=== PATIENT | female | born 1980 | race Caucasian/White ===

== ENCOUNTER 2020-02-11 01:05 | Observation (INO) | payer OTHER ==
[~2020-02-11] VITALS: Ht 154.9 cm; Wt 63.0 kg
--- NOTE | 2020-02-11 01:08 | PHYS DOC ---
Past History Past Medical History: Stroke, Vascular Disease Past Medical History Raynaud's, antiphospholipid antibody, Smoking: Cigarettes Additional Smoking Information: Vapes General Adult HPI: HPI: ".. My woke me up... he said I was having a seizure.. ." Pt. " ... We were sleeping together.. and I felt the bed shaking.. I looked over and she was shaking.. her arms were out.. and she was spitting her saliva.. And drooling... I tried to wake her up but she would not wake up... I rolled her on her side.... 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 Patient denies any previous episode of seizure disorder. Has not on any seizure meds. Has been taking Chantix for attempts at stopping her tobacco use. Patient does have somewhat of a significant past medical history of antiphospholipid disorder, TIA/CVA 2007, Raynaud's, hypertension and PFO. Patient reports her previous TIA/stroke she did not speak for approximately 24 hours. Patient is followed by neurology at [facility] in the past. Follows at for rheumatology. Follows at [facility] for oncology. And follows at [facility] with Dr. Ramirez for cardiology. Patient does take Coumadin and does home INR checks. Her last check INR was 2.1. Patient denies any previous history of cardiac disorders other than a PFO. Pt. last bubble test was negative. . Patient normally follows with [facility] for a primary care. Patient denies any specific ill contacts. 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 Patient advises she does not have any specific contact with ill patients. No recent travel. No specific ill contacts. Her boyfriend has also been testing negative for Covid he is also a pharmacist. Patient currently states her memory is somewhat cloudy and her ability to process questions is somewhat slow currently. Patient does states she is having trouble remembering events currently. No history of trauma. Patient does continue to smoke and vape nicotine.. Pt. advised we can speak to her boyfriend reference any medical issues and he can make medical decisions for her if she cannot speak. Boyfriend's phone number is [phone]. Review of Systems: Review of Systems: Constitutional: Denies fever or chills Eyes: Denies change in visual acuity HENT: Denies nasal congestion or sore throat Respiratory: Denies cough or shortness of breath Cardiovascular: Denies chest pain or edema GI: Denies abdominal pain, nausea, vomiting, bloody stools or diarrhea : Denies dysuria Musculoskeletal: Denies back pain or joint pain Integument: Denies rash Neurologic: Denies headache, focal weakness or sensory changes . Reports some confusion and memory loss. Endocrine: Denies polyuria or polydipsia Lymphatic: Denies swollen glands Psychiatric: Denies depression or anxiety Family History: Family History: Noncontributory to presentation Current Medications: Current Meds: See nursing for home meds Allergies: Allergies: No known drug allergies Physical Exam: PE: Constitutional: Well developed, well nourished, mild distress, non-toxic appearance. [] HENT: Normocephalic, atraumatic, bilateral external ears normal, oropharynx dry, no oral exudates, nose normal. [] Eyes: PERRLA, EOMI, conjunctiva normal, no discharge. [] Neck: Normal range of motion, no tenderness, supple, no stridor. No bruits appreciated Cardiovascular:Heart rate regular rhythm, no murmur. Does have occasionally PVC as per monitor Lungs & Thorax: Bilateral breath sounds equal apex with few scattered wheezes on auscultation [] Abdomen: Bowel sounds normal, soft, no tenderness, no masses, no pulsatile masses. [] Skin: Warm, dry, no erythema, no rash. Does have some decreased capillary refill and distal fingers. More prominent on left index currently. Back: No tenderness, no CVA tenderness. [] Extremities: No tenderness, no cyanosis, no clubbing, ROM intact, no edema.. No cording in legs. Neurologic: Alert and oriented X 3, moves all extremities on request, has distal sensory, no focal deficits noted. DTRs +2 patellar and brachial. No drift. Risk Compliance Manager equal. Does appear to have some memory issues currently. Psychologic: Affect anxious, judgement normal, mood normal. Does appear to have issues of difficulty in recall or memory at this time. EKG: EKG: My interpretation EKG shows a sinus rhythm at 85 bpm. Does have a occasional P VC. There is less affect axis deviation. [] Radiology/Procedures: Radiology/Procedures: [][address] [address] IMAGING REPORT Signed PATIENT: IGNACIO COATS ACCOUNT: [id number] : 1980 LOCATION: ER AGE: 39 SEX: F EXAM STATUS: PRE ER ORD. PHYSICIAN: JUAN JOSÉ YUAN MD REASON: sz, cough PROCEDURE: CHEST AP ONLY CHEST AP ONLY INDICATION: Reason: sz, cough / Spl. Instructions: / History: . COMPARISON STUDY: None. FINDINGS: Lungs: Normal lung volume. No pulmonary mass or consolidation. The tracheobronchial tree and hilar structures are normal. Pleura: No pleural effusion or pneumothorax. Heart and Mediastinum: The cardiomediastinal silhouette is normal. The great vessels of the thorax are normal. Bones and Soft Tissues: The bones and soft tissues are within normal limits. IMPRESSION: No acute cardiopulmonary process. Electronically signed by: Marilee Dill MD (02/11/2020 2:17 AM) [facility] DICTATED AND SIGNED BY: MARILEE DILL MD DATE: 02/11/20216 CC: JUAN JOSÉ YUAN MD ~MTH0 [address] [address] IMAGING REPORT Signed PATIENT: IGNACIO COATS ACCOUNT: [id number] : 1980 LOCATION: ER AGE: 39 SEX: F EXAM STATUS: PRE ER ORD. PHYSICIAN: JUAN JOSÉ YUAN MD REASON: seizure, PROCEDURE: CT HEAD WO CONTRAST CT HEAD WO CONTRAST Date: 02/11/2020 1:35 AM Clinical Indication: Reason: seizure, / Spl. Instructions: / History: Comparison: None. Technique: 5 mm axial tomographic images were obtained of the head without contrast. These were viewed on brain and bone windows. One or more of the following dose reduction techniques were utilized: Automated exposure control (AEC), Adjustment of mA and/or kV according to patient size, Use of iterative reconstruction technique such as ASiR, CT scan done according to ALARA and image gently/image wisely Findings: The brain parenchyma is normal in attenuation. No intra- or extra-axial mass or fluid collection. No acute hemorrhage. The ventricles are normal in size, shape, and morphology. The kimball-white matter junction is normal. The subarachnoid cisterns are patent. The visualized paranasal sinuses are normal. The visualized portions of the orbits and globes are normal. The mastoid air cells are clear. The citizenship teacher topogram shows no lytic lesion or fracture. Impression: No acute intracranial process. Electronically signed by: Marilee Dill MD (02/11/2020 2:10 AM) [facility] DICTATED AND SIGNED BY: MARILEE DILL MD DATE: 02/11/20209 CC: JUAN JOSÉ YUAN MD ~MTH0 0 Heart Score: HEART Score for Chest Pain: HEART Score for Chest Pain Response (Comments) Value History Moderately Suspicious 1 ECG Nonspecific Repolarizatio 1 Age < 45 0 Risk Factors 1 or 2 Risk Factors 1 Troponin >1-<3x Normal Limit 1 Total 4 Risk Factors: Risk Factors: DM, Current or recent (<one month) smoker, HTN, HLP, family history of CAD, obesity. Risk Scores: Score 0 - 3: 2.5% MACE over next 6 weeks - Discharge Home Score 4 - 6: 20.3% MACE over next 6 weeks - Admit for Clinical Observation Score 7 - 10: 72.7% MACE over next 6 weeks - Early Invasive Strategies Course & Med Decision Making: Course & Med Decision Making Pertinent Labs and Imaging studies reviewed. (See chart for details) Discussed options of evaluation and treatment with patient. Patient does elect to be admitted for further evaluation and treatment and possibly neurology consult in the morning. Discussed presentation, testing and tx. plan with Dr Celaya will admit to his service. Impression: 1, Pslzx-xsbqml-awlzokz-like activity. 2. Mild dehydration 3. Elevated creatinine 1.3 4. History of Raynaud's 5. History of antiphospholipid antibody 6. History of TIA/CVA 2007 7. Vapes nicotine [] Dragon Disclaimer: Dragon Disclaimer: This electronic medical record was generated, in whole or in part, using a voice recognition dictation system. Dragon Disclaimer This chart was dictated in whole or in part using Voice Recognition software in a busy, high-work load, and often noisy Emergency Department environment. It may contain unintended and wholly unrecognized errors or omissions. Dragon Disclaimer This chart was dictated in whole or in part using Voice Recognition software in a busy, high-work load, and often noisy Emergency Department environment. It ma y contain unintended and wholly unrecognized errors or omissions. Dragon Disclaimer This chart was dictated in whole or in part using Voice Recognition software in a busy, high-work load, and often noisy Emergency Department environment. It may contain unintended and wholly unrecognized errors or omissions. JUAN JOSÉ YUAN MD Feb 11, 2020 01:08
[2020-02-11 01:59] LABS: BASO % 0 % (0-3); EOS # 0.1 x10^3/uL (0.0-0.7); EOS % 2 % (0-3); HEMATOCRIT 37.5 % (36.0-47.0); HEMOGLOBIN 12.5 g/dL (12.0-15.5); LYMPH # 2.3 x10^3/uL (1.0-4.8); LYMPH % 23 % (24-48); MEAN CORPUSCULAR HEMOGLOBIN 32 pg (25-35); MEAN CORPUSCULAR HGB CONC 33 g/dL (31-37); MEAN CORPUSCULAR VOLUME 97 fL (79-100); MONO % 10 % (0-9); NEUT # 6.3 x10^3uL (1.8-7.7); NEUT % 65 % (31-73); PLATELET COUNT 261 x10^3/uL (140-400); RED BLOOD COUNT 3.88 x10^6/uL (3.50-5.40); RED CELL DISTRIBUTION WIDTH 13.1 % (11.5-14.5); WHITE BLOOD COUNT 9.7 x10^3/uL (4.0-11.0)
[2020-02-11] MEDS ORDERED: IV RINGERS SOLUTION,LACTATED 1,000 ML IV SCH (02:00)
[2020-02-11 02:11] LABS: ANION GAP 7 (6-14); BLOOD UREA NITROGEN 17 mg/dL (7-20); CALCIUM 8.8 mg/dL (8.5-10.1); CARBON DIOXIDE 28 mmol/L (21-32); CHLORIDE 103 mmol/L (98-107); CREATININE 1.3 mg/dL (0.6-1.0); GFR 46.1; GLUCOSE 122 mg/dL (70-99); POTASSIUM 4.2 mmol/L (3.5-5.1); SODIUM 138 mmol/L (136-145)
--- NOTE | 2020-02-11 02:13 | RAD ---
CT HEAD WO CONTRAST Date: 02/11/2020 1:35 AM Clinical Indication: Reason: seizure, / Spl. Instructions: / History: Comparison: None. Technique: 5 mm axial tomographic images were obtained of the head without contrast. These were viewed on brain and bone windows. One or more of the following dose reduction techniques were utilized: Automated exposure control (AEC), Adjustment of mA and/or kV according to patient size, Use of iterative reconstruction technique such as ASiR, CT scan done according to ALARA and image gently/image wisely Findings: The brain parenchyma is normal in attenuation. No intra- or extra-axial mass or fluid collection. No acute hemorrhage. The ventricles are normal in size, shape, and morphology. The kimball-white matter junction is normal. The subarachnoid cisterns are patent. The visualized paranasal sinuses are normal. The visualized portions of the orbits and globes are normal. The mastoid air cells are clear. The orthotic/prosthetic practitioner topogram shows no lytic lesion or fracture. Impression: No acute intracranial process. Electronically signed by: Lacho Dill MD (02/11/2020 2:10 AM) [facility]
--- NOTE | 2020-02-11 02:20 | RAD ---
CHEST AP ONLY INDICATION: Reason: sz, cough / Spl. Instructions: / History: . COMPARISON STUDY: None. FINDINGS: Lungs: Normal lung volume. No pulmonary mass or consolidation. The tracheobronchial tree and hilar structures are normal. Pleura: No pleural effusion or pneumothorax. Heart and Mediastinum: The cardiomediastinal silhouette is normal. The great vessels of the thorax are normal. Bones and Soft Tissues: The bones and soft tissues are within normal limits. IMPRESSION: No acute cardiopulmonary process. Electronically signed by: Lacho Dill MD (02/11/2020 2:17 AM) [facility]
[2020-02-11 02:24] LABS: ALBUMIN 3.7 g/dL (3.4-5.0); ALK PHOS 48 U/L (46-116); ALT (SGPT) 31 U/L (14-59); AST (SGOT) 22 U/L (15-37); DIRECT BILIRUBIN 0.1 mg/dL (0.0-0.2); LIPASE 198 U/L (73-393); TOTAL BILIRUBIN 0.4 mg/dL (0.2-1.0); TOTAL PROTEIN 6.6 g/dL (6.4-8.2)
[2020-02-11 02:30] LABS: C REACTIVE PROTEIN < 0.5 mg/L (0-3.3)
[2020-02-11 03:30] LABS: BARBITURATES NEG (NEG); BENZODIAZEPINES NEG (NEG); CANNABINOIDS NEG (NEG); COCAINE NEG (NEG); METHADONE NEG (NEG); OPIATES NEG (NEG); PHENCYCLIDINE NEG (NEG)
[2020-02-11 03:33] LABS: COLOR,URINE YELLOW
[2020-02-11 03:34] LABS: BACTERIA,URINE 0 /HPF (0-FEW); BILIRUBIN,URINE NEG (NEG); CLARITY,URINE CLEAR; GLUCOSE,URINE NEG (NEG); NITRITE,URINE NEG (NEG); RBC,URINE 0 /HPF (0-2); SQUAMOUS EPITHELIAL CELL,UR FEW /LPF; UROBILINOGEN,URINE 0.2 mg/dL (0.2 mg/dL); WBC,URINE RARE /HPF (0-4)
[2020-02-11 03:38] LABS: AMPHETAMINE/METHAMPHETAMINE NEG (NEG)
[2020-02-11] MEDS ORDERED: ONDANSETRON PF 4 MG/2 ML VIAL. IVP PRN (04:45)
[2020-02-11] MEDS ORDERED: ACETAMINOPHEN 325 MG TABLET PO PRN (04:45)
--- NOTE | 2020-02-11 05:55 | NUR ---
The patient, IGNACIO COATS, 39 y/o, F admitted by ALBERTO MCLEAN MD, was given written information regarding hospital policies, unit procedures and contact persons. Valuables were checked and left with patient.
[2020-02-11 06:10] VITALS: BP 99/64
[2020-02-11 11:02] VITALS: BP 99/63
[2020-02-11] MEDS ORDERED: NIFE30TA95 PO (15:23)
[2020-02-11] MEDS ORDERED: LISI10TA2 PO (15:23)
[2020-02-11] MEDS ORDERED: VARE1TAB20 PO (15:23)
[2020-02-11] MEDS ORDERED: WARF4TAB64 PO (15:23)
--- NOTE | 2020-02-11 15:49 | NUR ---
Pharmacy Warfarin Dosing Note S:Pharmacy consulted to assist with anticoagulation therapy started with target INR: 2 -3 O:IGNACIO COATS is a 39 year old F with ANTIPHOSPHOLIPID SYNDROME LABS: Last INR: 2.1 Last HGB: 12.5 Last HCT: 37.5 Last PLT: 261 Last dose of 8MG given on at Previous Regimen: Vitamin K given: N Drug Interaction Changes: Same Interacting Drug Ongoing Drug Interactions: home dose 8mg warfarin daily A:INR Within desired Range. Target Range for this patient is: 2 -3 P: Warfarin dose: 8MG Today at 1600 Bridge Therapy: None Next INR due 02/12/20 @ 0600 Pharmacy anticoagulation service will continue to follow. [facility] SANC[facility], 02/11/20 [id number]
--- NOTE | 2020-02-11 15:59 | HP ---
ADMIT DATE: 02/11/2020 HISTORY OF PRESENT ILLNESS: The patient is a 39-year-old female patient, who was brought to the Emergency Room. Her stated that they went to sleep together and he felt the bed shaking, he looked over and she was shaking, her arms were out and she was spitting her saliva and drooling. He tried apparently to wake her up, but she would not wake up, so he rolled her on her side. She eventually came around, but was really kind of confused on her responses. The patient denied any previous episodes of seizure disorder. She is not on any seizure medicine, has been taking Chantix for attempt to stop her tobacco use. She does have somewhat of a significant past medical history of antiphospholipid disorder, has had a TIA or CVA in 2007, Raynaud's phenomenon, hypertension and resistant fossa ovalis. She reports had previous TIA or stroke. She did not speak for approximately 24 hours. The patient is followed by Neurology at [facility] in the past. She was seen at [facility] for rheumatology and she follows at the [facility] for Oncology and follows at the [facility] with ____ for Cardiology. The patient does take Coumadin and does home INR checks. Her last check INR was 2.1. The patient denies any previous history of cardiac disorders other than PFO. She has had bubble study done recently that was negative. Her primary care physician is ____, the nurse practitioner with Dr. Tay Baker. 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 Her boyfriend was also tested negative for COVID and he is also a pharmacist. She complained also that her memory is somewhat cloudy and her ability to process questions somewhat slow and has trouble remembering events; however, she has no history of trauma. She was extensively investigated in the Emergency Room and has had lab work as well as CT scan. Her INR was within therapeutic range at 2.1. Her D-dimer was normal at least 10.19. Urinalysis was unremarkable and toxic screen was also negative. She has had a CT scan of the head that showed basically no acute intracranial process and her chest x-ray was also unremarkable. The patient was admitted with possible new onset of seizure. We will consult Dr. Cornejo to evaluate with oral evaluate and treat. PAST MEDICAL HISTORY: Significant for hypertension, antiphospholipid syndrome, had had a CVA and TIA in 2007, she had glaucoma, Raynaud's phenomenon and resistant PFO; however, her bubble study done recently was negative. She has also complained of worsening memory deficit. PAST SURGICAL HISTORY: Significant for , tubal ligation, wisdom teeth extraction. ALLERGIES: She has no known drug allergies. MEDICATIONS: She is currently on following medications: She is on Tylenol 650 mg every 4 hours, lorazepam. She is on Coumadin, nifedipine, and Chantix. FAMILY HISTORY: She has 1 younger sister apparently healthy. Both parents are alive at the age of 62 and none of them have any history of DVT or PE. SOCIAL HISTORY: She is , currently lives with her boyfriend. She has 1 son, who is 10 years old. She continued to vape, does not smoke cigarettes, drinks 6-pack of alcohol every weekend, does not use any drugs. 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 REVIEW OF SYSTEMS: As per history of present illness. PHYSICAL EXAMINATION: GENERAL: On arrival to the Emergency Room, she looked well and was clearly in no apparent respiratory distress. There was no pallor, jaundice, cyanosis or thyromegaly. No jugular venous distention. No lower limb edema. VITAL SIGNS: Her heart rate on arrival was 101, blood pressure was 127/87, temperature was 98.3, respiratory rate was 16, and oxygen saturation was 99%. HEAD, EYES, EARS, NOSE AND THROAT: Showed normocephalic, atraumatic. NECK: Supple. HEART: Showed normal first and second heart sounds. No gallop or murmur. CHEST: Clear to auscultation. No crepitation or rhonchi. ABDOMEN: Distended, soft, nontender. NEUROLOGIC: She was awake, alert, responding appropriately. All her cranial nerves are intact. EXTREMITIES: She moves extremities without difficulty. PSYCHOLOGICAL: Her affect, judgment and mood were normal. LABORATORY DATA: Her EKG showed that she was in sinus rhythm at 85 beats per minute, occasional PVCs. Her chest x-ray was unremarkable and showed no acute cardiopulmonary process. The CT scan of the head showed that the brain parenchyma is normal in attenuation. No intra or extraaxial mass or fluid collection. No acute hemorrhage. The ventricles are normal in size, shape and morphology. The kimball white matter junction is normal. The cisterns are patent. The visualized paranasal sinuses are normal. The visualized portion, the orbits and globes are normal. The mastoid air cells are clear. The attending ambulatory care topogram shows no lytic lesion or fracture. Her CBC showed a white cell count 9700, hemoglobin 12.5, hematocrit 37.5, MCV 97 and platelet count of 261,000 with normal manual differential. Her chemistry showed a serum sodium 138, potassium 4.2, chloride 103, bicarbonate 28, anion gap of 7, BUN 17, creatinine 1.3, estimated GFR was 46 mL per minute, her glucose 122, calcium was 8.8, magnesium 2. Total bilirubin, AST, ALT, alkaline phosphatase were normal. Total protein was 6.6, albumin was 3.7. Lipase was 198. Her prothrombin time was 21.3, INR of 2.1, aPTT was 29 and D-dimer was less than 0.19. Urinalysis was essentially unremarkable and urine toxic screen showed the urine was negative for opiates, methadone, barbiturates, phencyclidine, amphetamine, methamphetamine, benzodiazepine, cocaine, cannabinoids and alcohol. ASSESSMENT AND PLAN: 1. The patient was admitted with a possible new onset of tonic-clonic seizures. 2. The patient has a history of antiphospholipid antibody syndrome. 3. Raynaud's phenomenon. 4. History of transient ischemic attack and cerebrovascular accident in 2007. 5. Mild dehydration with elevated serum creatinine. 6. The patient continued to be vaping. She also drinks about 6 packs of alcohol on the weekends. PLAN: My plan is to continue all her current medications and we have consulted Dr. Cornejo to assist for her evaluation and treatment. ALBERTO MCLEAN MD DR: DELILAH/fátima JOB#: [id number] / [id number]
[2020-02-11] MEDS ORDERED: WARFARIN 4 MG TABLET. PO SCH ×2 (16:00→21:00)
[2020-02-11 16:08] VITALS: BP 105/70
[2020-02-11] MEDS ORDERED: LISINOPRIL 10 MG TABLET PO SCH (21:00)
[2020-02-12 06:41] VITALS: BP 104/71
[2020-02-12 08:36] LABS: BASO # 0.1 x10^3/uL (0.0-0.2); BASO % 1 % (0-3); EOS # 0.2 x10^3/uL (0.0-0.7); EOS % 2 % (0-3); HEMATOCRIT 37.7 % (36.0-47.0); HEMOGLOBIN 12.3 g/dL (12.0-15.5); LYMPH # 2.4 x10^3/uL (1.0-4.8); LYMPH % 27 % (24-48); MEAN CORPUSCULAR HEMOGLOBIN 32 pg (25-35); MEAN CORPUSCULAR HGB CONC 33 g/dL (31-37); MEAN CORPUSCULAR VOLUME 98 fL (79-100); MONO # 0.8 x10^3/uL (0.0-1.1); MONO % 10 % (0-9); NEUT # 5.4 x10^3uL (1.8-7.7); NEUT % 61 % (31-73); PLATELET COUNT 227 x10^3/uL (140-400); RED BLOOD COUNT 3.85 x10^6/uL (3.50-5.40); RED CELL DISTRIBUTION WIDTH 13.4 % (11.5-14.5); WHITE BLOOD COUNT 8.8 x10^3/uL (4.0-11.0)
[2020-02-12 08:53] LABS: CALCIUM 8.5 mg/dL (8.5-10.1); GFR 62.4; POTASSIUM 4.4 mmol/L (3.5-5.1)
[2020-02-12] MEDS ORDERED: LISINOPRIL 10 MG TABLET PO SCH (09:00)
[2020-02-12 11:37] VITALS: BP 106/73
--- NOTE | 2020-02-12 12:13 | PN ---
DATE: SUBJECTIVE: The patient denies any new medical or neurological complaints. She has not had any recurrent seizures since admission. She has not been on any anticonvulsant at this time. She denies chest pain, shortness of breath or palpitation, dysarthria or dysphagia. OBJECTIVE: GENERAL: Well-developed, well-nourished female, not in acute distress. VITAL SIGNS: Afebrile, blood pressure 104/71, respiratory rate 16, pulse is 77, temperature 98.5, oxygen saturation 94% on room air. HEENT: Normocephalic and atraumatic, otherwise unremarkable. NECK: Supple. Negative for carotid bruit, lymphadenopathy or thyromegaly. LUNGS: Clear to A and P. CARDIOVASCULAR: Regular rate and rhythm, normal S1 and S2. There is no S3, S4 or murmurs. ABDOMEN: Soft. Bowel sounds positive. EXTREMITIES: Negative for cyanosis, clubbing or edema. NEUROLOGICAL EXAM: Mental Status: The patient is alert and oriented x 3. Speech is fluent. There is no language dysfunction. Cranial nerves are intact. No focal motor or sensory deficit. Deep tendon reflexes were symmetric and active without pathology responses. Gait and coordination were normal. LABORATORY DATA: Coagulation: PT is 22, INR 2.2. CBC revealed white blood cells of 8.8 thousand, hemoglobin 12.3, hematocrit 37.7, platelet count 227. Chemistry revealed sodium of 139, potassium 4.4, chloride 106, CO2 of 27, BUN 16, creatinine 1, glucose 84. IMPRESSION: 1. Possible new onset of seizure, etiology uncertain. 2. Positive history of antiphospholipid antibody syndrome, Raynaud phenomenon, history of stroke, smoking. RECOMMENDATIONS: 1. We will arrange for an EEG on an outpatient and brain MRI. 2. Continue with current management initiated by Dr. Celaya. M Elijah JAMES MD DR: TAMELA/fátima JOB#: [id number] / [id number]
--- NOTE | 2020-02-12 12:44 | NUR ---
PATIENT IS DISCHARGED HOME WITH SELF CARE. PATIENT IS GIVEN FOLLOW UP INSTRUCTIONS WITH NEUROLOGY. PATIENTS IV IS REMOVED AND TELE MONITOR RECEIVED. PATIENT IS STABLE AT TIME OF DISCHARGE. PATIENT IS ESCORTED OFF OF UNIT ACCOMPANIED BY STAFF.
--- NOTE | 2020-02-12 12:55 | CONS ---
DATE OF CONSULTATION: REFERRING PHYSICIAN: Dr. Celaya. REASON FOR CONSULTATION: Rule out new onset of stroke. 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 According to her , the patient was sleepy and all of a sudden, she started having shaking of the upper extremities, lasted a few minutes and followed by postictal confusions lasted approximately 20 minutes. The patient did not recall the event. She denies tongue biting or urinary or bladder incontinence. The patient has had a history of TIA versus stroke in 2007, described as difficulty to speak for 2 days. She has had memory loss since the stroke. She was found to have positive antiphospholipid antibodies. Therefore, she was placed on warfarin, which she was taking intermittently until 2019 she has been taking regularly and she has been followed by a furnace repair mechanic at [facility] for INR regulation. The patient also describes some heart problems and she had PFO; however, last bubble echo test was negative. The patient denies any history of previous seizure-like activities. She has been very tired yesterday and she has been on Chantix, which reduced the threshold of a seizure for at least 4 months to stop smoking. However, she continues to smoke and vape extra nicotine. Currently, she stated her head feels cloudy and recently she said she had cloudiness of the head and memory loss, but she thinks she is improving. She denies chest pain, shortness of breath or palpitation, dysarthria or dysphagia or vertigo. The patient also denies any back pain or lower back or neck pain; however, she complains of intermittent numbness and paresthesia of the hands. PAST MEDICAL HISTORY: Positive for stroke or TIA, positive antiphospholipid antibodies, Raynaud's phenomenon, chronic smoking. FAMILY HISTORY: Noncontributory. SOCIAL HISTORY: The patient is , but she has boyfriend. She has one child at the age of 12. 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 She smokes and drinks alcohol. CURRENT MEDICATIONS: Lorazepam 1 mg p.r.n. for anxiety, Tylenol, Zofran 4 mg q.4 hours p.r.n. and she is on warfarin. Other medications not listed at this time. REVIEW OF SYSTEMS: A 10-point review of system was performed as mentioned above in history of present illness, presented with intermittent cloudiness in the head, memory loss, and intermittent dizziness. PHYSICAL EXAMINATION: GENERAL: Well-developed, well-nourished female, not in acute distress. She weighs 63 kilos. VITAL SIGNS: Blood pressure now 99/63, respiratory rate 20, pulse is 82, oxygen is 98% on room air, and temperature is 98. HEENT: Normocephalic, atraumatic, otherwise unremarkable. NECK: Supple. Negative for carotid bruit, lymphadenopathy or thyromegaly. LUNGS: Clear to A and P. CARDIOVASCULAR: Regular rate and rhythm, normal S1, S2. ABDOMEN: Soft. Bowel sounds positive. EXTREMITIES: Negative for cyanosis, clubbing or edema. NEUROLOGICAL EXAM: MENTAL STATUS: The patient is alert and oriented x 3. Speech is fluent. There is no language dysfunction. Immediate memory is normal. She denies hallucination or delusion. Judgment and abstract thinking are normal. CRANIAL NERVES: Visual thomason are full. The pupils are reactive to light and accommodation. The extraocular movements are intact. There is no nystagmus. There are no facial, motor, or sensory deficits. Hearing is intact bilaterally. The palate is elevated symmetrically. Sternocleidomastoid muscles are powerful bilaterally. The patient shrugs her shoulders symmetrically, protrudes her tongue in the midline without fasciculation or atrophy. MOTOR: No focal muscle bulk was seen. The tone is normal. The strength is 5/5 throughout. SENSORY EXAMINATION: Revealed normal pinprick, light touch, vibratory and position senses. Deep tendon reflexes were symmetric and hypoactive with absent Achilles responses bilaterally. Gait and coordination are normal. LABORATORY DATA: CBC revealed white blood cells of 9.7 thousand, hemoglobin 12.5, hematocrit 37.5, platelet count 261,000. Chemistry revealed sodium of 138, potassium 4.2, chloride 103, CO2 of 28, BUN 17, creatinine 1.3, glucose 122. Liver enzymes are normal. Troponin level is normal. Urinalysis is negative for urinary tract infection. Urine drug screen is negative. DIAGNOSTIC DATA: Nonenhanced head CT scan revealed no evidence of acute intracranial process and chest x-ray revealed no evidence of cardiopulmonary process. IMPRESSION: 1. New onset of seizure-like activities, described as jerking of upper extremities with foaming at the mouth and postictal confusions as described above, etiology uncertain, rule out epileptic versus nonepileptic seizure. 2. History of transient ischemic attack or stroke 12 years ago, presented with difficulty speaking and complicated with memory loss. 3. Multiple medical problems include smoking, positive antiphospholipid antibody. RECOMMENDATIONS: 1. Continue to observe the patient overnight for possible recurrent seizure. 2. We will arrange for brain MRI and EEG on an outpatient basis. 3. She will continue with current home medications. M Elijah JAMES MD DR: TAMELA/fátima JOB#: [id number] / [id number]
--- NOTE | 2020-02-13 08:53 | EKG ---
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
== END 2020-02-12 12:54 | disposition home or self-care (01) ==
LOC: ER 01:05 → 1 SOUTH 04:30
PROVIDERS: ADMIT Internal Medicine; ATTEND Internal Medicine
DX: R56.9 Unspecified convulsions (principal); D68.61 Antiphospholipid syndrome; I73.00 Raynaud's syndrome without gangrene; E86.0 Dehydration; R79.89 Other specified abnormal findings of blood chemistry; I10 Essential (primary) hypertension; F17.200 Nicotine dependence, unspecified, uncomplicated; Z86.73 Personal history of transient ischemic attack (TIA), and cerebral infarction without residual deficits; Z79.899 Other long term (current) drug therapy; Z79.01 Long term (current) use of anticoagulants
CPT/HCPCS: 36415; 70450; 71045; 80048; 80076; 80307; 81001; 82550; 83690; 83735; 83880; 84443; 84484; 84702; 85025; 85379; 85610; 85730; 86140; 93005; 96360; 99285; G0378; G0480; J7120; G0379

== ENCOUNTER → 2020-07-19 | Outpatient (CLI) | payer OTHER ==
[~2020-07-19] MED LIST: LISI10TA16 PO; NIFE30TA95 PO; VARE1TAB20 PO; WARF4TAB64 PO
== END ==
LOC: LAB 11:52
PROVIDERS: ATTEND Physician Assistant
DX: D68.61 Antiphospholipid syndrome (principal)
CPT/HCPCS: 36415; 85610

== ENCOUNTER 2020-11-01 23:50 | Emergency (ER) | payer OTHER ==
[~2020-11-01] VITALS: Ht 154.9 cm; Wt 61.8 kg
[2020-11-02] VITALS: BP 134/74
[2020-11-02 00:23] LABS: BARBITURATES NEG (NEG); BENZODIAZEPINES NEG (NEG); CANNABINOIDS NEG (NEG); COCAINE NEG (NEG); METHADONE NEG (NEG); OPIATES NEG (NEG); PHENCYCLIDINE NEG (NEG)
[2020-11-02 00:24] LABS: AMPHETAMINE/METHAMPHETAMINE NEG (NEG)
[2020-11-02] MEDS ORDERED: IV NORMAL SALINE 1,000ML 1,000 ML IV ONE (00:30)
[2020-11-02 00:41] LABS: BASO % 0 % (0-3); EOS # 0.1 x10^3/uL (0.0-0.7); EOS % 1 % (0-3); HEMATOCRIT 38.6 % (36.0-47.0); LYMPH # 2.6 x10^3/uL (1.0-4.8); LYMPH % 30 % (24-48); MEAN CORPUSCULAR HEMOGLOBIN 32 pg (25-35); MEAN CORPUSCULAR HGB CONC 34 g/dL (31-37); MEAN CORPUSCULAR VOLUME 96 fL (79-100); MONO # 0.8 x10^3/uL (0.0-1.1); MONO % 9 % (0-9); NEUT # 5.1 x10^3uL (1.8-7.7); NEUT % 59 % (31-73); PLATELET COUNT 241 x10^3/uL (140-400); RED BLOOD COUNT 4.03 x10^6/uL (3.50-5.40); RED CELL DISTRIBUTION WIDTH 12.9 % (11.5-14.5); WHITE BLOOD COUNT 8.5 x10^3/uL (4.0-11.0)
--- NOTE | 2020-11-02 00:41 | PHYS DOC ---
Past History Past Medical History: Stroke, Vascular Disease Additional Past Medical Histor: antiphosphalipid syndrome Past Surgical History: , Other Additional Past Surgical Histo: WISDOM TEETH Smoking: Cigarettes Alcohol Use: Occasionally General Adult EDM: Chief Complaint: SEIZURE HPI: HPI: 40-year-old female presents via EMS for syncopal episode and possible seizure. The patient remembers laying down to go to sleep. She does remember anything until she woke up with multiple people standing around her to transport her to the hospital. The patient tells me that she is a very deep sleeper. She is difficult to wake up normally. Her significant other who was present told EMS that the patient fell backwards and hit the back of her head. He thought she might have had seizure-like activity on the ground. The patient is on warfarin because she has antiphospholipid syndrome. The patient denies any other sy mptoms or feelings of illness today. She may have had one seizure in the past, but is on no seizure medication. She has history of miscarriage and a stroke. Review of Systems: Review of Systems: Constitutional: Denies fever or chills Eyes: Denies change in visual acuity HENT: Denies nasal congestion or sore throat Respiratory: Denies cough or shortness of breath Cardiovascular: Denies chest pain or edema GI: Denies abdominal pain, nausea, vomiting, bloody stools or diarrhea : Denies dysuria Musculoskeletal: Denies back pain or joint pain Integument: Scalp laceration Neurologic: Syncope. Denies headache, focal weakness or sensory changes Endocrine: Denies polyuria or polydipsia Lymphatic: Denies swollen glands Psychiatric: Denies depression or anxiety Current Medications: Current Meds: Current Medications Medications (Trade) Dose Ordered Sig/Lisa Start Time Stop Time Status Last Admin Dose Admin Sodium Chloride 1,000 ml @ 1,000 mls/hr 1X ONCE 11/02/20 00:30 11/02/20 01:29 Allergies: Allergies: Allergies Coded Allergies Type Severity Reaction Last Updated Verified No Known Drug Allergies 11/02/20 No Physical Exam: PE: Constitutional: Well developed, well nourished, no acute distress, non-toxic appearance. [] HENT: Normocephalic, atraumatic, bilateral external ears normal, oropharynx moist, no oral exudates, nose normal. [] Eyes: PERRLA, EOMI, conjunctiva normal, no discharge. [] Neck: Normal range of motion, no tenderness, supple, no stridor. [] Cardiovascular:Heart rate regular rhythm, no murmur [] Lungs & Thorax: Bilateral breath sounds clear to auscultation [] Abdomen: Bowel sounds normal, soft, no tenderness, no masses, no pulsatile masses. [] Skin: 2 mm laceration of the right lateral scalp. [] Back: No tenderness, no CVA tenderness. [] Extremities: No tenderness, no cyanosis, no clubbing, ROM intact, no edema. [] Neurologic: Alert and oriented X 3, normal motor function, normal sensory f unction, no focal deficits noted. [] Psychologic: Affect normal, judgement normal, mood normal. [] Current Patient Data: Labs: Laboratory Tests Test 11/01/20 23:59 11/02/20 00:09 Urine Opiates Screen Neg (NEG) Urine Methadone Screen Neg (NEG) Urine Barbiturates Neg (NEG) Urine Phencyclidine Screen Neg (NEG) Urine Amphetamine/Methamphetamine Neg (NEG) Urine Benzodiazepines Screen Neg (NEG) Urine Cocaine Screen Neg (NEG) Urine Cannabinoids Screen Neg (NEG) Urine Ethyl Alcohol Neg (NEG) POC Urine HCG, Qualitative hcg negative (Negative) Vital Signs: Vital Signs Date Time Temp Pulse Resp B/P (MAP) Pulse Ox O2 Delivery O2 Flow Rate FiO2 11/02/20 00:00 98.6 93 22 134/74 99 EKG: EKG: [] Radiology/Procedures: Radiology/Procedures: [] Impressions: PQRS Compliance Statement: One or more of the following individualized dose reduction techniques were utilized for this examination: 1. Automated exposure control 2. Adjustment of the mA and/or kV according to patient size 3. Use of iterative reconstruction technique CT HEAD AND CERVICAL SPINE WITHOUT CONTRAST History: Reason: fall / Spl. Instructions: / History: Comparison: CT head without contrast February 11, 2020. Procedure: Axial images are obtained of the head from the skull base through the vertex without IV contrast. Noncontrast helical CT of the cervical spine was performed. Axial, sagittal, and coronal reconstructions were obtained. Findings: The ventricles and sulci are normal for the patient's age. There is periventricular white matter hypoattenuation. No mass-effect, midline shift, hemorrhage or obvious acute infarction is identified. Basilar cisterns are patent. Bone windows demonstrate no significant calvarial abnormality. The visualized paranasal sinuses are clear. Mastoid air cells are well aerated. There is no evidence of acute fracture or acute malalignment of the cervical spine. There is minimal grade 1 anterolisthesis of C2 on C3. The alignment is otherwise maintained. The disc spaces are maintained. There is mild endplate spurring most apparent at C5/C6. The facet joints are intact. Visualized soft tissues of the neck demonstrate no significant abnormalities. The visualized lung apices are clear. IMPRESSION: 1. No acute intracranial abnormality. 2. There is periventricular white matter hypoattenuation. Considerations include chronic small vessel ischemic disease, demyelinating disease, or sequela migraines. 3. No acute fracture of the cervical spine. Electronically signed by: Caesar Good MD (11/02/2020 12:55 AM) [facility] DICTATED AND SIGNED BY: CAESAR GOOD MD DATE: 11/02/20 0049 CC: KINGS LOPEZ DO; KEVIN CARDENAS AL ~MTH0 0 Heart Score: C/O Chest Pain: N/A Risk Factors: Risk Factors: DM, Current or recent (<one month) smoker, HTN, HLP, family history of CAD, obesity. Risk Scores: Score 0 - 3: 2.5% MACE over next 6 weeks - Discharge Home Score 4 - 6: 20.3% MACE over next 6 weeks - Admit for Clinical Observation Score 7 - 10: 72.7% MACE over next 6 weeks - Early Invasive Strategies Course & Med Decision Making: Course & Med Decision Making Pertinent Labs and Imaging studies reviewed. (See chart for details) The patient's CT of her head neck is negative for acute findings. The patient's labs are unremarkable. Urinalysis is unremarkable. Her urine drug screen is negative. Not sure what happened tonight. The patient may have been sleepwalking. She may have had a syncopal episode and seizures. She does not have any secondary evidence of seizure/there is tongue biting or loss of bowel or bladder. She does not have any injuries that would require admission. The patient does not want to stay overnight for observation. I believe this is reasonable. She is stable for discharge at this time. [] Dragon Disclaimer: Dragon Disclaimer: This electronic medical record was generated, in whole or in part, using a voice recognition dictation system. Departure Departure: Impression: Primary Impression: Syncope Additional Impression: Abrasion Disposition: HOME / SELF CARE / HOMELESS Condition: STABLE Referrals: KEVIN CARDENAS (PCP) Patient Instructions: Syncope, Oppm-di-Qgon KINGS LOPEZ DO Nov 02, 2020 00:41
[2020-11-02 00:44] LABS: BACTERIA,URINE 0 /HPF (0-FEW); BILIRUBIN,URINE NEG (NEG); CLARITY,URINE CLEAR; COLOR,URINE YELLOW; GLUCOSE,URINE NEG (NEG); NITRITE,URINE NEG (NEG); RBC,URINE 0 /HPF (0-2); SQUAMOUS EPITHELIAL CELL,UR FEW /LPF; UROBILINOGEN,URINE 0.2 mg/dL (0.2 mg/dL); WBC,URINE 0 /HPF (0-4)
[2020-11-02 00:47] LABS: CALCIUM 8.5 mg/dL (8.5-10.1); GFR 62.1; POTASSIUM 3.9 mmol/L (3.5-5.1)
[2020-11-02 00:53] LABS: ALBUMIN 3.9 g/dL (3.4-5.0); ALBUMIN/GLOBULIN RATIO 1.5 (1.0-1.7); TOTAL BILIRUBIN 0.7 mg/dL (0.2-1.0); TOTAL PROTEIN 6.5 g/dL (6.4-8.2)
--- NOTE | 2020-11-02 00:58 | RAD ---
PQRS Compliance Statement: One or more of the following individualized dose reduction techniques were utilized for this examinat ion: 1. Automated exposure control 2. Adjustment of the mA and/or kV according to patient size 3. Use of iterative reconstruction technique CT HEAD AND CERVICAL SPINE WITHOUT CONTRAST History: Reason: fall / Spl. Instructions: / History: Comparison: CT head without contrast February 11, 2020. Procedure: Axial images are obtained of the head from the skull base through the vertex without IV co ntrast. Noncontrast helical CT of the cervical spine was performed. Axial, sagittal, and coronal rec onstructions were obtained. Findings: The ventricles and sulci are normal for the patient's age. There is periventricular white matter hypo attenuation. No mass-effect, midline shift, hemorrhage or obvious acute infarction is identified. Basilar cistern s are patent. Bone windows demonstrate no significant calvarial abnormality. The visualized paranasal sinuses are clear. Mastoid air cells are well aerated. There is no evidence of acute fracture or acute malalignment of the cervical spine. There is minimal grade 1 anterolisthesis of C2 on C3. The alignment is otherwise maintained. The disc spaces are maintained. There is mild endplate spurring most apparent at C5/C6. The facet joints are intact. Visualized soft tissues of the neck demonstrate no significant abnormalities. The visualized lung api hector are clear. IMPRESSION: 1. No acute intracranial abnormality. 2. There is periventricular white matter hypoattenuation. Considerations include chronic small vesse l ischemic disease, demyelinating disease, or sequela migraines. 3. No acute fracture of the cervical spine. Electronically signed by: Caesar Gonzalez MD (11/02/2020 12:55 AM) [facility]
== END 2020-11-02 02:05 | disposition home or self-care (01) ==
LOC: ER 23:50
DX: S01.01XA Laceration without foreign body of scalp, initial encounter (principal); R55 Syncope and collapse; W18.39XA Other fall on same level, initial encounter; Y93.89 Activity, other specified; Y92.89 Other specified places as the place of occurrence of the external cause; Y99.8 Other external cause status
CPT/HCPCS: 36415; 70450; 72125; 80053; 80307; 81001; 81025; 85025; 96360; 99285; J7030

== ENCOUNTER → 2020-11-03 | Outpatient (CLI) | payer OTHER ==
[2020-11-02] VITALS: BP 134/74
--- NOTE | 2020-11-03 15:21 | RAD ---
Examination: LEFT LOWER EXTREMITY - UNILATERAL VENOUS DOPPLER Technique: Ultrasound evaluation of the left lower extremity was performed from the groin to the uppe r calf with licona scale, spectral and color doppler evaluation. Indication: Leg swelling Comparison: None Findings: There is normal venous flow and compressibility of left common femoral vein, femoral vein, popliteal vein, and visualized proximal calf veins. Impression: No evidence for deep vein thrombosis of left lower extremity from the level of the calf v eins to the groins. Electronically signed by: Derrell Rodriguez MD (11/03/2020 3:19 PM) [facility]
== END ==
LOC: US 13:27
PROVIDERS: ATTEND Family Medicine
DX: D68.61 Antiphospholipid syndrome (principal); R60.9 Edema, unspecified; M79.605 Pain in left leg; Z68.26 Body mass index [BMI] 26.0-26.9, adult
CPT/HCPCS: 93971